=== PATIENT | female | born 1990 ===

== ENCOUNTER 2018-06-27 20:06 | Emergency (ER) | payer SELFPAY ==
[2018-06-27 20:22] VITALS: RESP 18; TEMP 98.2; O2SAT 99
--- NOTE | 2018-06-27 21:32 | ED PDOC ---
HPI: Abdomen Time Seen by Provider: 06/27/18 20:23 Chief Complaint (Nursing): Female Genitourinary History Per: Patient, Family, [employer] (Voyce: [phone]) History/Exam Limitations: no limitations Onset/Duration Of Symptoms: Days (6 months) Current Symptoms Are (Timing): Intermittent Episodes Location Of Pain/Discomfort: RUQ, Epigastric Quality Of Discomfort: Aching Associated Symptoms: Nausea, Urinary Symptoms. denies: Fever, Chills, Vomiting, Diarrhea, Constipation Exacerbating Factors: Movement, Upright Position Additional Complaint(s): 27 year old obese F with history of open cholecystectomy in [place] one year prior presenting with abdominal pain x 6 months. States she has followed up in [place] and was told by the performing surgeon that it was "normal" but patient feels that there is something wrong. States she feels worsening pain when laying flat and sitting up, states pain is unrelated to food consumption. States nausea, but no vomiting, no abnormal stools. Additionally, patient has had 3 days of pain with urination, no hematuria. PMD: None Past Medical History Reviewed: Historical Data, Nursing Documentation, Vital Signs Vital Signs: Last Vital Signs Temp 98.2 F 06/27/18 20:18 Pulse 74 06/27/18 20:18 Resp 18 06/27/18 20:18 BP 108/61 06/27/18 20:18 Pulse Ox 99 06/27/18 20:18 - Medical History PMH: No Chronic Diseases - Surgical History Surgical History: Cholecystectomy - Family History Family History: States: No Known Family Hx - Home Medications Home Medications: Ambulatory Orders Medication Instructions Recorded RX: Ibuprofen [Motrin Tab] 600 mg PO Q6 #30 tab 06/28/18 - Allergies Allergies/Adverse Reactions: Allergies Allergy/AdvReac Type Severity Reaction Status Date / Time No Known Allergies Allergy Verified 06/27/18 21:16 Review of Systems ROS Statement: Except As Marked, All Systems Reviewed And Found Negative Gastrointestinal: Positive for: Nausea, Abdominal Pain Genitourinary Female: Positive for: Dysuria. Negative for: Frequency, Incontinence, Hematuria, Vaginal Discharge, Vaginal Bleeding Physical Exam - Reviewed Nursing Documentation Reviewed: Yes Vital Signs Reviewed: Yes - Physical Exam Appears: Positive for: Well, Non-toxic, No Acute Distress Head Exam: Positive for: ATRAUMATIC, NORMAL INSPECTION, NORMOCEPHALIC Skin: Positive for: Normal Color, Warm, DRY Eye Exam: Positive for: EOMI, Normal appearance, PERRL ENT: Positive for: Normal ENT Inspection Neck: Positive for: Normal, Painless ROM Cardiovascular/Chest: Positive for: Regular Rate, Rhythm Respiratory: Positive for: CNT, Normal Breath Sounds Gastrointestinal/Abdominal: Positive for: Soft, Tenderness (Tenderness in epigastric and RUQ). Negative for: Organomegaly, Mass, Distended Back: Positive for: Normal Inspection Extremity: Positive for: Normal ROM Neurologic/Psych: Positive for: Alert, Oriented - Laboratory Results Result Diagrams: 06/27/18 21:30 06/27/18 21:30 - ECG O2 Sat by Pulse Oximetry: 99 Pulse Ox Interpretation: Normal Medical Decision Making Medical Decision MakinPM Patient presenting with abdominal pain x 6 months status post cholecystectomy --Well appearing, stable vitals --Patient has tenderness in epigastric and RUQ, possibly related to surgery --Symptoms do not sound like GERD/reflux --Possibly abdominal wall muscle involvement status post yousuf --Will get labs, CT, and re-eval 1150PM EXAM: CT Abdomen and Pelvis with IV contrast CLINICAL HISTORY: Abd pain s/p cholecystectomy 1yr , 6 mths ago TECHNIQUE: Axial computed tomography images of the abdomen and pelvis with intravenous contrast. 303.37 mGy-cm CONTRAST: With; [id number] 90ML COMPARISON: None provided. FINDINGS: LUNG BASES: The lung bases appear clear. No pleural effusions are seen. LIVER: Unremarkable. GALLBLADDER AND BILE DUCTS: S/p cholecystectomy. Surgical clips are noted in the gallbladder fossa. No biliary ductal dilatation is evident. PANCREAS: Unremarkable. SPLEEN: Unremarkable. ADRENAL GLANDS: Unremarkable. KIDNEYS, URETERS, AND BLADDER: The kidneys appear within normal limits. There is no hydronephrosis or hydroureter. No urinary calculi are seen. STOMACH AND BOWEL: Unremarkable appearance of the stomach and bowel. No evidence of bowel obstruction. No evidence suggesting enteritis or colitis. APPENDIX: No evidence of acute appendicitis on CT examination. PERITONEUM: No free fluid. No free air. LYMPH NODES: No lymphadenopathy is evident. REPRODUCTIVE: Status post complete hysterectomy. VASCULATURE: No evidence of abdominal aortic aneurysm. BONES: No aggressive appearing osseous lesion. No acute osseous pathology evident. IMPRESSION: No acute intra-abdominal or pelvic abnormality. Electronically signed on Jun 27, 2018 11:53:36 PM EST by: Anil Mei M.D., SUDARSHAN Certified By [facility] & [facility] Fellowship Trained MRI and CT Specialist Patient is feeling much better after toradol Advised of results and instructed to followup with PMD and surgery Very well appearing upon discahrge Disposition - Clinical Impression Clinical Impression: Abdominal pain - Disposition Referrals: [facility] [Outside] Fabricio Hogue MD [Staff Provider] - Disposition: Routine/Home Disposition Time: 00:00 Condition: STABLE Prescriptions: RX: Ibuprofen [Motrin Tab] 600 mg PO Q6 #30 tab Instructions: Acute Abdomen (Belly Pain) Forms: [facility] (Welsh) Print Language: AZERI
[2018-06-27 21:42] LABS: HEMOGLOBIN 12.6 g/dL (12.0-16.0); MEAN CELL VOLUME 86.4 fl (81.0-99.0); MEAN CORPUSCULAR HEMOGLOBIN 29.1 pg (27.0-31.0); MEAN CORPUSCULAR HGB CONC 33.7 g/dL (33.0-37.0); RBC 4.33 Mil/uL (3.80-5.20); RED CELL DISTRIBUTION WIDTH 13.6 % (11.5-14.5); WHITE BLOOD COUNT 10.1 K/uL (4.8-10.8)
[2018-06-27 21:50] LABS: SQUAMOUS EPITHIAL 5 /hpf (0-5); URINE BACTERIA RARE (<OCC); URINE BILIRUBIN NEGATIVE (NEGATIVE); URINE BLOOD SMALL (NEGATIVE); URINE CLARITY SLIGHTY-CLOUDY (Clear); URINE COLOR YELLOW (YELLOW); URINE GLUCOSE (UA) NEG (NEGATIVE); URINE LEUKOCYTE ESTERASE NEG Leu/uL (Negative); URINE PROTEIN NEGATIVE (NEGATIVE); URINE UROBILINOGEN 0.2-1.0 mg/dL (0.2-1.0)
[2018-06-27 21:58] LABS: ALB/GLOB RATIO 1.3 (1.0-2.1); ALBUMIN 4.4 g/dL (3.5-5.0); ALT/SGPT 33 U/L (9-52); AST/SGOT 26 U/L (14-36); BLOOD UREA NITROGEN 18 mg/dl (7-17); CALCIUM 9.3 mg/dL (8.4-10.2); GFR NON-AFRICAN AMERICAN > 60; LIPASE 127 U/L (23-300)
[2018-06-27] MEDS ORDERED: Iohexol 300 100 ML IJ ONE (22:49)
[2018-06-27] MEDS ORDERED: Sodium Chloride 0.9% 50 ML IV ONE (22:50)
[2018-06-28 00:35] VITALS: BP 101/60; PULSE 68
--- NOTE | 2018-06-28 10:37 | CT ---
Date of service: 06/27/2018 PROCEDURE: CT Abdomen and Pelvis.. HISTORY: s/p cholecystectomy 1 yr ago, 6 mo abd pain COMPARISON: None. TECHNIQUE: Contiguous axial images of the abdomen and pelvis performed following intravenous injection of approximately 90 cc Omnipaque 300 contrast material. Additional 2D sagittal and coronal reformats generated. Reformats generated. Radiation dose: Total exam DLP = 303.37 mGy-cm. This CT exam was performed using one or more of the following dose reduction techniques: Automated exposure control, adjustment of the mA and/or kV according to patient size, and/or use of iterative reconstruction technique. FINDINGS: LOWER THORAX: Mild passive/dependent type atelectasis both posterior lower lung garduno. No evidence of effusion or basilar pneumothorax. Heart size within range of normal. Small hiatal hernia. LIVER: Liver exhibits normal size measuring nearly 18 cm in CC dimension. Mild fatty hepatic infiltration. No obvious hepatic mass collection or calcification. Portal and splenic veins are opacified.. GALLBLADDER AND BILE DUCTS: Unremarkable. PANCREAS: Unremarkable. No mass. No ductal dilatation. SPLEEN: Spleen exhibits normal size and attenuation pattern without masses collections or calcifications.. ADRENALS: No adrenal lesions. KIDNEYS AND URETERS: Kidneys demonstrate symmetric nephrograms. No evidence of nephrolithiasis or hydronephrosis.. BLADDER: Urinary bladder incompletely distended which may in part account for slight thick-walled appearance. Correlation with urinalysis suggested.. REPRODUCTIVE: Small follicular cysts are felt to be present both ovaries.. APPENDIX: Normal-appearing appendix.. BOWEL: Evaluation of the bowel is somewhat limited due to the lack of oral contrast material. Moderate amount of food debris liquid and air present within the stomach. Visualized loops of small bowel exhibit relatively normal contour though do appear contained fecalized content suggesting fecal stasis. No evidence of acute mechanical bowel obstruction. Additionally, there is a moderately large amount of stool within the colon consistent with fecal retention/constipation.. PERITONEUM: Unremarkable. No fluid collection. No free air. There is a small fat containing umbilical hernia. LYMPH NODES: Unremarkable. No enlarged lymph nodes. VASCULATURE: Unremarkable. No aortic aneurysm. No aortic atherosclerotic calcification or mural plaque present. BONES: No fracture or destructive lesion. OTHER FINDINGS: None. IMPRESSION: Findings consistent with constipation and fecalized content within numerous loops of small bowel. No acute intra abdominal pathology.
== END 2018-06-28 01:01 | disposition home or self-care (01) ==
LOC: H.ER 20:06
DX: R10.9 Unspecified abdominal pain (principal); Z90.49 Acquired absence of other specified parts of digestive tract
CPT/HCPCS: 74177; 80048; 80076; 81003; 81025; 83690; 85027; 96374; 99282; J1885; Q9967